=== PATIENT | female | born 2000 | race Asian ===

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

== ENCOUNTER 2020-08-29 17:32 | Emergency (ER) | payer BC ==
[~2020-08-29] VITALS: Ht 154.9 cm; Wt 54.4 kg
[2020-08-29 18:42] VITALS: BP 124/72; TEMP 98.4
== END 2020-08-29 18:57 | disposition home or self-care (01) ==
LOC: ED 17:32
DX: T63.441A Toxic effect of venom of bees, accidental (unintentional), initial encounter (principal); R22.31 Localized swelling, mass and lump, right upper limb; Y92.89 Other specified places as the place of occurrence of the external cause
CPT/HCPCS: 96372; 99283; J2930

== ENCOUNTER 2020-11-30 16:36 | Emergency (ER) | payer OTHER ==
[~2020-11-30] VITALS: Ht 154.9 cm; Wt 53.1 kg
[2020-11-30 19:28] VITALS: BP 124/82; TEMP 98.2
== END 2020-11-30 19:28 | disposition home or self-care (01) ==
LOC: ED 16:36
DX: K29.60 Other gastritis without bleeding (principal); R11.0 Nausea; B34.9 Viral infection, unspecified; Z03.818 Encounter for observation for suspected exposure to other biological agents ruled out
CPT/HCPCS: 81000; 81025; 87635; 99283; U0003

== ENCOUNTER 2021-05-30 07:07 | Emergency (ER) | payer OTHER ==
[~2021-05-30] VITALS: Ht 154.9 cm; Wt 49.9 kg
[2021-05-30 08:10] LABS: PLATELET COUNT 265 K/uL (152-353)
[2021-05-30 08:35] LABS: SODIUM 135 mmol/L (136-145)
[2021-05-30 09:07] VITALS: BP 117/69; TEMP 99.1
== END 2021-05-30 09:14 | disposition still patient (30) ==
LOC: ED 07:07
PROVIDERS: Hospitalist
DX: R07.89 Other chest pain (principal); F41.8 Other specified anxiety disorders; U07.1 COVID-19; Z3A.15 15 weeks gestation of pregnancy
CPT/HCPCS: 80053; 81025; 82550; 83880; 84484; 85027; 85379; 85610; 85730; 87635; 93005; 99283; U0003